=== PATIENT | male | born 1955 | race Caucasian/White ===

== ENCOUNTER 2016-09-22 17:40 | Inpatient (IN) | payer OTHER ==
[~2016-09-22 17:40] MED LIST: PROVENTIL17 G; ZOCOR40 MG
[2016-09-22] MEDS ORDERED: PRAVASTATIN SOD40 M1 PO (18:11)
[2016-09-22] MEDS ORDERED: ASPIRIN81 M1 PO (18:11)
[2016-09-22 18:28] LABS: BASO % 0.2 % (0-2); EOS % 0.5 % (0-7); EOSINOPHIL ABSOLUTE COUNT 0.1 tho/cmm (0.0-0.7); HCT-HEMATOCRIT 40.8 % (36.0-53.5); IMMATURE GRANULOCYTES ABSOLUTE 0.03 tho/cmm (0-0.03); IMMATURE GRANULOCYTES PERCENT 0.3 % (0-0.3); LYMPH % 8.1 % (20-45); LYMPH ABSOLUTE COUNT 0.9 tho/cmm (0.8-4.5); MCH (MEAN CORPUSCULAR HGB) 31.2 pg (28.0-32.0); MCHC MEAN CORPUSCULAR HGB CONC 34.3 % (32.0-36.0); MCV (MEAN CELL VOLUME) 90.9 fl (82.0-96.0); MEAN PLATELET VOLUME 9.2 cmc (9.4-12.4); MONO % 9.1 % (0-12); NEUTROPHIL ABSOLUTE COUNT 9.1 tho/cmm (1.6-8.0); NEUTROPHIL-AUTOMATED 9.1 tho/cmm (1.6-8.0); NEUTROPHILS % 81.8 % (40-80); PLATELET COUNT 203 tho/cmm (150-450); RED BLOOD COUNT 4.49 mil/cmm (4.40-5.70); RED CELL DISTRIBUTION WIDTH 13.1 % (12.4-16.4); WHITE BLOOD COUNT 11.1 tho/cmm (4.0-10.0)
[2016-09-22 18:31] LABS: INR 1.1 INR (0.9-1.1); PROTHROMBIN TIME 12.7 SECONDS (9.0-13.6)
[2016-09-22 18:41] LABS: ALB/GLOB RATIO 1.2 (0.8-2.0); ALBUMIN 3.8 g/dl (3.5-5.2); ALKALINE PHOSPHATASE 64 U/L (40-129); ALT/SGPT 49 U/L (0-41); ANION GAP 14 mmol/L (5-15); AST/SGOT 32 U/L (0-40); BILIRUBIN,TOTAL 0.5 mg/dl (0.0-1.0); BLOOD UREA NITROGEN 16 mg/dl (6-25); CALCIUM 8.9 mg/dl (8.6-10.2); CARBON DIOXIDE-VENOUS 23 mmol/L (22-29); CHLORIDE 99 mmol/L (98-110); CREATININE 0.98 mg/dl (0.67-1.17); GLUCOSE 144 mg/dl (65-120); POTASSIUM 3.9 mmol/L (3.4-5.0); SODIUM 136 mmol/L (135-146); eGFR VALUE FOR BLACK >60 mL/Min
[2016-09-22 19:50] LABS: PROCALCITONIN 0.85 ng/ml (0.05-0.09)
[2016-09-23 05:37] LABS: BASO % 0.1 % (0-2); EOS % 0.8 % (0-7); EOSINOPHIL ABSOLUTE COUNT 0.1 tho/cmm (0.0-0.7); HCT-HEMATOCRIT 38.8 % (36.0-53.5); HGB-HEMOGLOBIN 12.9 gm/dl (13.5-17.0); IMMATURE GRANULOCYTES ABSOLUTE 0.02 tho/cmm (0-0.03); IMMATURE GRANULOCYTES PERCENT 0.2 % (0-0.3); LYMPH % 9.2 % (20-45); LYMPH ABSOLUTE COUNT 0.9 tho/cmm (0.8-4.5); MCH (MEAN CORPUSCULAR HGB) 30.4 pg (28.0-32.0); MCHC MEAN CORPUSCULAR HGB CONC 33.2 % (32.0-36.0); MCV (MEAN CELL VOLUME) 91.5 fl (82.0-96.0); MEAN PLATELET VOLUME 9.5 cmc (9.4-12.4); MONO % 13.6 % (0-12); MONOCYTE ABSOLUTE COUNT 1.3 tho/cmm (0.0-1.2); NEUTROPHIL ABSOLUTE COUNT 7.2 tho/cmm (1.6-8.0); NEUTROPHIL-AUTOMATED 7.2 tho/cmm (1.6-8.0); NEUTROPHILS % 76.1 % (40-80); PLATELET COUNT 192 tho/cmm (150-450); RED BLOOD COUNT 4.24 mil/cmm (4.40-5.70); RED CELL DISTRIBUTION WIDTH 13.2 % (12.4-16.4); WHITE BLOOD COUNT 9.5 tho/cmm (4.0-10.0)
[2016-09-23 05:49] LABS: ALB/GLOB RATIO 1.1 (0.8-2.0); ALBUMIN 3.4 g/dl (3.5-5.2); ALKALINE PHOSPHATASE 60 U/L (40-129); ALT/SGPT 40 U/L (0-41); ANION GAP 13 mmol/L (5-15); AST/SGOT 21 U/L (0-40); BILIRUBIN,TOTAL 0.5 mg/dl (0.0-1.0); BLOOD UREA NITROGEN 11 mg/dl (6-25); CALCIUM 8.3 mg/dl (8.6-10.2); CARBON DIOXIDE-VENOUS 23 mmol/L (22-29); CHLORIDE 102 mmol/L (98-110); CREATININE 0.92 mg/dl (0.67-1.17); GLUCOSE 139 mg/dl (65-120); POTASSIUM 4.1 mmol/L (3.4-5.0); SODIUM 138 mmol/L (135-146); eGFR VALUE FOR BLACK >60 mL/Min
[2016-09-24 05:02] LABS: BASO % 0.3 % (0-2); EOS % 3.1 % (0-7); EOSINOPHIL ABSOLUTE COUNT 0.2 tho/cmm (0.0-0.7); HCT-HEMATOCRIT 40.5 % (36.0-53.5); HGB-HEMOGLOBIN 13.4 gm/dl (13.5-17.0); IMMATURE GRANULOCYTES ABSOLUTE 0.01 tho/cmm (0-0.03); IMMATURE GRANULOCYTES PERCENT 0.2 % (0-0.3); LYMPH % 21.1 % (20-45); LYMPH ABSOLUTE COUNT 1.3 tho/cmm (0.8-4.5); MCH (MEAN CORPUSCULAR HGB) 30.5 pg (28.0-32.0); MCHC MEAN CORPUSCULAR HGB CONC 33.1 % (32.0-36.0); MEAN PLATELET VOLUME 9.5 cmc (9.4-12.4); MONO % 16.4 % (0-12); NEUTROPHIL ABSOLUTE COUNT 3.6 tho/cmm (1.6-8.0); NEUTROPHIL-AUTOMATED 3.6 tho/cmm (1.6-8.0); NEUTROPHILS % 58.9 % (40-80); PLATELET COUNT 215 tho/cmm (150-450); WHITE BLOOD COUNT 6.1 tho/cmm (4.0-10.0)
[2016-09-24 05:27] LABS: ANION GAP 12 mmol/L (5-15); BLOOD UREA NITROGEN 11 mg/dl (6-25); CALCIUM 8.6 mg/dl (8.6-10.2); CARBON DIOXIDE-VENOUS 24 mmol/L (22-29); CHLORIDE 103 mmol/L (98-110); CREATININE 0.88 mg/dl (0.67-1.17); GLUCOSE 122 mg/dl (65-120); POTASSIUM 4.1 mmol/L (3.4-5.0); SODIUM 139 mmol/L (135-146); eGFR VALUE FOR BLACK >60 mL/Min
[2016-09-25] MEDS ORDERED: SULFAMYLON60 GM EXT (11:05)
[2016-09-25] MEDS ORDERED: KEFLEX500 M4 PO (11:06)
[2016-09-25] MEDS ORDERED: VIBRAMYCIN100 M1 PO (11:06)
[2016-09-25] MEDS ORDERED: ACIDOPHILUS LA1 EAC1 PO (11:07)
== END 2016-09-25 12:30 | DRG 603 ==
LOC: EDMED 17:40 → EMR2 20:12 → 5WE 22:07
PROVIDERS: Emergency Medicine; Family Medicine; Internal Medicine; ADMIT Hospitalist
PROC: B54BZZZ Ultrasonography of Right Lower Extremity Veins (ICD-10-PCS; principal; 2016-09-22)
PROC: 5A09357 Assistance with Respiratory Ventilation, Less than 24 Consecutive Hours, Continuous Positive Airway Pressure (ICD-10-PCS; 2016-09-23)
DX: L03.115 Cellulitis of right lower limb (principal); Z68.42 Body mass index [BMI] 45.0-49.9, adult; E66.01 Morbid (severe) obesity due to excess calories; E78.5 Hyperlipidemia, unspecified; G47.33 Obstructive sleep apnea (adult) (pediatric); Z86.711 Personal history of pulmonary embolism; Z86.718 Personal history of other venous thrombosis and embolism; Z96.651 Presence of right artificial knee joint
CPT/HCPCS: J1650; J2543; J3370; J7030